=== PATIENT | male | born 1950 | race Caucasian/White ===

== ENCOUNTER → 2017-01-30 | Outpatient (CLI) | payer OTHER, BC ==
[~2017-01-30] MED LIST: AMITRIPTYLINE H25 M2 PO; BOOST237 M1 PO; CEFAZOLIN1 GM/50 M1 IV; CLOTRIMAZOLE-BE15 GM TP; COLACE100 MG PO; COUMADIN 2 MG TA2 M1 PO; COUMADIN 4 MG TA4 M1 PO; DETROL LA4 MG PO; ELIQUIS2.5 MG PO; GENTAMICIN 0.1%15 G2 TOP; LIORESAL 10 MG10 MG PO; MICONAZOLE5 GM MC; MIRALAX17 GM PO; OXYBUTYNIN 5 MG5 M2 PO; PROBIOTIC1 EAC1 PO; PROCEL1 EACH PO; UNICOMPLEX M TA1 TA1 PO; VALIUM5 MG PO
== END ==
LOC: HYPER 07:20
DX: L89.513 Pressure ulcer of right ankle, stage 3 (principal); L89.523 Pressure ulcer of left ankle, stage 3; L89.613 Pressure ulcer of right heel, stage 3; G82.20 Paraplegia, unspecified; Z87.891 Personal history of nicotine dependence; Z72.89 Other problems related to lifestyle

== ENCOUNTER → 2017-02-13 | Outpatient (CLI) | payer OTHER, BC | LOC: HYPER 07:04 | DX: L89.513 Pressure ulcer of right ankle, stage 3 (principal); L89.613 Pressure ulcer of right heel, stage 3; L89.523 Pressure ulcer of left ankle, stage 3; G82.20 Paraplegia, unspecified; Z87.891 Personal history of nicotine dependence; Z72.89 Other problems related to lifestyle ==

== ENCOUNTER → 2017-02-20 | Outpatient (CLI) | payer OTHER, BC | LOC: ULTRA 12:52 | DX: L89.513 Pressure ulcer of right ankle, stage 3 (principal); L89.613 Pressure ulcer of right heel, stage 3; I74.3 Embolism and thrombosis of arteries of the lower extremities ==

== ENCOUNTER → 2017-03-06 | Outpatient (CLI) | payer OTHER, BC | LOC: HYPER 06:55 | DX: L89.513 Pressure ulcer of right ankle, stage 3 (principal); L89.523 Pressure ulcer of left ankle, stage 3; L89.613 Pressure ulcer of right heel, stage 3; L89.893 Pressure ulcer of other site, stage 3; L89.309 Pressure ulcer of unspecified buttock, unspecified stage; G82.20 Paraplegia, unspecified; Z87.891 Personal history of nicotine dependence; Z72.89 Other problems related to lifestyle ==

== ENCOUNTER 2017-03-15 05:54 | Inpatient (IN) | payer OTHER, BC ==
[~2017-03-15] VITALS: Ht 170.2 cm; Wt 79.4 kg
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
--- NOTE | ~2017-03-15 | O ---
[facility] [place] [address] OPERATIVE REPORT Name: KATELYNCLEVE C Room #: 546-P [facility] IN ..#: [id number] Admission: 03/15/17 Attend Phys: Sriram Vivas MD Discharge: 03/18/17 Date of : 54 Report #: [id number] THIS REPORT FOR: //name// CC: Sriram Vivas Kenneth Stanford DATE OF SERVICE: 03/15/2017 PREOPERATIVE DIAGNOSIS: Right distal tibial osteomyelitis. POSTOPERATIVE DIAGNOSIS: Right distal tibial osteomyelitis. PROCEDURE: Right ankle irrigation and debridement with resection of medial malleolus. SURGEON: Sriram Vivas MD ANESTHESIA: General. ESTIMATED BLOOD LOSS: Minimal. DRAINS: One roc drain was placed. TOURNIQUET TIME: 30 minutes. COMPLICATIONS: There were no complications. DESCRIPTION OF PROCEDURE: The patient brought to the operating room where he was placed under general anesthesia. Once under adequate general anesthesia, his right lower extremity was prepped and draped in sterile manner. Extremity was elevated and tourniquet placed to 300 mmHg. An elliptical incision was made over the wound, which was a 2-cm right wound over the medial malleolus. This was dissected sharply down to the bone. Any exposed tendon was removed, the posterior tibialis and the flexor digitorum, these were excised sharply with a 15 blade. The bone was exposed and osteotome were used to remove the medial malleolus as well as anterior portion of the distal tibia to allow wound closure or approximation. The wound was then able to be approximated with a roc drain placed beneath utilizing 2-0 nylon suture after abundant irrigation with normal saline solution. The wound was then dressed with Xeroform, 4 x 4's, and sterile soft compressive dressing was placed. Tourniquet was let down approximately 30 minutes. There were no complications from the procedure. The [address] [address] OPERATIVE REPORT Name: CLEVE ZEPEDA Room #: 546-P [facility] IN ..#: [id number] Admission: 03/15/17 Attend Phys: Sriram Vivas MD Discharge: 03/18/17 Date of : 54 Report #: [id number] patient tolerated the procedure well and went to the recovery room without incident. <ELECTRONICALLY SIGNED> By: Sriram Vivas MD 03/20/17 1419 0917 0942 Sriram Vivas MD /nt
--- NOTE | ~2017-03-15 | S ---
[facility] [place] [address] SURGICAL PATH RPT PROCEDURE Name: CLEVE ZEPEDA Room #: 546-P ADM IN M.R.#: [id number] Admission: 03/15/17 Date of : 54 Discharge: Report #: [id number] Path Case #: [id number] PATHOLOGY REPORT COLLECTION DATE: 03/15/2017 RECEIVED DATE: 03/15/2017 SUBMITTING PHYS: Dr. Sriram Vivas OTHER PHYS: Dr. Kenneth Stanford SPECIMEN(S) RECEIVED: A.Right tibia * * * * * * * * * * * * FINAL DIAGNOSIS: Bone, right tibia, excision: - Marked acute inflammation extending into underlying bone associated with osteonecrosis, consistent with the provided history of osteomyelitis. (IUV:db; 03/17/2017) PATHOLOGIST: Cheryl Duckworth M.D. REPORT ELECTRONICALLY SIGNED BY: Cheryl Duckworth M.D. DATE/TIME: 03/17/2017 14:32 * * * * * * * * * * * * GROSS PATHOLOGY: The specimen is received in formalin labeled "Cleve Zepeda, right tibia". Received is a segment of light méndez bone with attached overlying white-méndez fibrous soft tissue measuring 4.2 x 2.5 x 1.4 cm in greatest dimensions. The articulating surface is not grossly visible. Specimen is submitted representatively in cassette A1, following decalcification. (CAA; 03/16/2017) CLINICAL HISTORY: Right ankle osteomyelitis INITIAL CPT CODE(S): A; 88987, 77726 Professional services performed by [facility] at [facility] [address] [place] [address] [place] [address] Technical services performed by [facility] at [address] [place] [id number]. [facility] [address] [place] [address] SURGICAL PATH RPT PROCEDURE Name: CLEVE ZEPEDA Room #: 546-P ADM IN M.R.#: [id number] Admission: 03/15/17 Date of : 54 Discharge: Report #: [id number] Path Case #: [id number] [facility] [id number] [address] PHONE: [phone] DIRECTOR: Nakul Glasgow M.D. * * * END OF REPORT * * *
[2017-03-15 12:44] VITALS: BP 130/80
[2017-03-15 15:45] VITALS: BP 130/65
[2017-03-15 16:15] VITALS: BP 151/86
[2017-03-15 16:45] VITALS: BP 168/60
[2017-03-15 17:45] VITALS: BP 131/55
[2017-03-15 17:50] LABS: HEMATOCRIT 35.4 % (42.0-52.0); HEMOGLOBIN 11.5 gm/dL (14.0-18.0); MCH 25.4 pg (26.0-34.0); MCHC 32.4 g/dL (28.0-37.0); MCV 78.6 fL (80.0-100.0); PLATELET COUNT 262 thou/uL (150-400); RBC 4.51 mil/uL (4.50-6.00); RDW 16.8 % (10.5-14.5); WBC 9.2 thou/uL (4.0-11.0)
[2017-03-15 17:58] LABS: MANUAL DIFF YES
[2017-03-15 18:09] LABS: CHOLESTEROL 149 mg/dL (<200); HDL CHOLESTEROL 45 mg/dL (>40); LDL CHOLESTEROL 97 mg/dL (<100); TC:HDL 3.3 Ratio (Not establshd); TRIGLYCERIDE 39 mg/dL (<150); VLDL 8 mg/dL (<40)
[2017-03-15 18:37] LABS: ABSOLUTE NEUTROPHILS 8.4 thou/uL (1.4-8.2); TOTAL CELL COUNT 100
[2017-03-15 18:38] LABS: ANISOCYTOSIS 1+; BURR CELLS 2+; MICROCYTES 1+; POLYCHROMASIA SLIGHT
[2017-03-15 19:51] VITALS: BP 133/59
[2017-03-16 02:06] LABS: GLYCOHEMOGLOBIN (HGB A1C) 5.4 % (4.8-5.6)
[2017-03-16 05:14] VITALS: BP 158/69
[2017-03-16 05:15] VITALS: BP 158/69
[2017-03-16 06:32] LABS: ABSOLUTE NEUTROPHILS 9.8 thou/uL (1.4-8.2); BASOPHILS 0.1 % (0.0-2.0); HEMOGLOBIN 10.9 gm/dL (14.0-18.0)
[2017-03-16 06:36] LABS: HEMATOCRIT 33.7 % (42.0-52.0); LYMPHOCYTES 12.3 % (24.0-44.0); MCH 25.1 pg (26.0-34.0); MCHC 32.3 g/dL (28.0-37.0); MCV 77.7 fL (80.0-100.0); MONOCYTES 5.5 % (1.0-8.0); PLATELET COUNT 302 thou/uL (150-400); POLYS 82.1 % (36.0-66.0); RBC 4.34 mil/uL (4.50-6.00); RDW 17.2 % (10.5-14.5)
[2017-03-16 06:44] LABS: MANUAL DIFF NO
[2017-03-16 07:13] LABS: ALBUMIN 2.9 g/dL (3.4-5.0); CALCIUM 8.9 mg/dL (8.5-10.1); CREATININE 0.6 mg/dL (0.7-1.3); MAGNESIUM 1.9 mg/dL (1.8-2.4); POTASSIUM 4.1 mmol/L (3.5-5.1); TOTAL BILIRUBIN 0.2 mg/dL (<0.1-1.0); TOTAL PROTEIN 7.1 g/dL (6.4-8.2)
[2017-03-16 07:58] VITALS: BP 128/62
[2017-03-16 15:22] VITALS: BP 130/60
[2017-03-16 19:20] VITALS: BP 146/51
[2017-03-17 03:52] VITALS: BP 127/63
[2017-03-17] MEDS ORDERED: HYDROCODONE-APA1 TA1 PO (07:47)
[2017-03-17 10:04] VITALS: BP 124/60
[2017-03-17 16:58] VITALS: BP 141/57
[2017-03-17 19:59] VITALS: BP 120/61
[2017-03-18 04:00] VITALS: BP 137/69
[2017-03-18 08:00] VITALS: BP 105/56
[2017-03-18] MEDS ORDERED: ANCEF 1GM1 GM/50 M1 IVPB (09:53)
== END 2017-03-18 16:50 | DRG 492 ==
LOC: TBA 05:54 → 5S 05:54 → PRE 11:10 → 5S 15:20
PROVIDERS: Nurse Practitioner; Orthopaedic Surgery Foot and Ankle Surgery
PROC: 0QBG0ZZ Excision of Right Tibia, Open Approach (ICD-10-PCS; principal; 2017-03-15)
PROC: 02HV33Z Insertion of Infusion Device into Superior Vena Cava, Percutaneous Approach (ICD-10-PCS; 2017-03-18)
DX: M86.161 Other acute osteomyelitis, right tibia and fibula (principal); G82.50 Quadriplegia, unspecified; M86.171 Other acute osteomyelitis, right ankle and foot; E44.0 Moderate protein-calorie malnutrition; I73.9 Peripheral vascular disease, unspecified; G83.9 Paralytic syndrome, unspecified; R53.81 Other malaise; K59.00 Constipation, unspecified; N31.9 Neuromuscular dysfunction of bladder, unspecified; Z88.2 Allergy status to sulfonamides; Z88.8 Allergy status to other drugs, medicaments and biological substances; Z87.891 Personal history of nicotine dependence; Z68.24 Body mass index [BMI] 24.0-24.9, adult; Z86.718 Personal history of other venous thrombosis and embolism; Z88.1 Allergy status to other antibiotic agents
CPT/HCPCS: 10785; 27000; 50010; 50101; 50386; 56525; 57086; 57091; 62110; 62900; 70005

== ENCOUNTER → 2017-05-01 | Outpatient (CLI) | payer OTHER, BC ==
[~2017-05-01] MED LIST changes: +ANCEF 1GM1 GM/50 M1 IVPB; +CATHFLO ACT2 MG/VIA1 IV PUSH; +ENSURE ENLIVE237 ML PO; +FLEET ENEMA118 ML RC; +FLEXERIL PO; +FLUSH FLUSH; +HYDROCODONE-APA1 TA1 PO; +PEPCID20 MG PO; +TYLENOL325 MG PO; +VANCO1GM IVPB; +XOLEGEL45 GM TP; +[UNRECOGNIZED DRUG - OTHER] PO
== END ==
LOC: HYPER 04-27 06:52
DX: T81.89XD Other complications of procedures, not elsewhere classified, subsequent encounter (principal); L89.513 Pressure ulcer of right ankle, stage 3; L89.613 Pressure ulcer of right heel, stage 3; L89.523 Pressure ulcer of left ankle, stage 3; G82.20 Paraplegia, unspecified; L30.9 Dermatitis, unspecified; Z87.891 Personal history of nicotine dependence; Z72.89 Other problems related to lifestyle; Y83.8 Other surgical procedures as the cause of abnormal reaction of the patient, or of later complication, without mention of misadventure at the time of the procedure

== ENCOUNTER → 2017-05-22 | Outpatient (CLI) | payer OTHER, BC | LOC: HYPER 06:58 | DX: T81.89XD Other complications of procedures, not elsewhere classified, subsequent encounter (principal); L97.221 Non-pressure chronic ulcer of left calf limited to breakdown of skin; L89.513 Pressure ulcer of right ankle, stage 3; L89.613 Pressure ulcer of right heel, stage 3; L89.523 Pressure ulcer of left ankle, stage 3; G82.20 Paraplegia, unspecified; L30.9 Dermatitis, unspecified; L89.893 Pressure ulcer of other site, stage 3; Z87.891 Personal history of nicotine dependence; Z72.89 Other problems related to lifestyle; Y83.8 Other surgical procedures as the cause of abnormal reaction of the patient, or of later complication, without mention of misadventure at the time of the procedure ==

== ENCOUNTER 2017-07-10 15:43 | Inpatient (IN) | payer OTHER, BC ==
[~2017-07-10] VITALS: Ht 170.2 cm; Wt 75.3 kg
--- NOTE | ~2017-07-10 | O ---
[facility] [place] [address] OPERATIVE REPORT Name: CLEVE ZEPEDA Room #: 438-P ADM IN M.R.#: [id number] Admission: 07/10/17 Attend Phys: Cong Modi MD Discharge: Date of : 54 Report #: [id number] THIS REPORT FOR: //name// CC: Cong Tatum DATE OF SERVICE: 07/14/2017 DATE OF SURGERY: 07/14/2017. PREOPERATIVE DIAGNOSIS: Right foot osteomyelitis. POSTOPERATIVE DIAGNOSIS: Right foot osteomyelitis. PROCEDURE: Right below-knee amputation. SURGEON: Cali Allen MD. GRAIN SAMPLER: Stephanie Hines. INDICATIONS FOR ASSISTANCE: Throughout the case, extensive manipulation and retraction of the leg was needed, this was afforded to me by my anesthesiology physician assistant. ANESTHESIA: LMA. TOURNIQUET TIME: 19 minutes. ESTIMATED BLOOD LOSS: 25 mL. COMPLICATIONS: None. SPECIMENS: The right foot was sent to pathology. CONDITION UPON LEAVING THE OR: Stable. INDICATION FOR PROCEDURE: The patient is a 67-year-old gentleman who is a quadriplegic. He has had wounds on his right foot that have failed wound care treatment. He had an MRI scan showing him to have osteomyelitis of several bones in his foot. He is nonambulatory and after discussion with him as well as wound care team, the recommendation was for below-knee amputation. DESCRIPTION OF PROCEDURE: Risks, benefits, alternatives, complications were discussed in detail with the patient including but not limited to risk of anesthesia; risk of damage to nerves, arteries, blood vessels; risk for infection, bleeding; risk for continued pressure ulcers and need for higher [facility] [address] [place] [address] OPERATIVE REPORT Name: KATELYNCLEVE C Room #: 438-P [facility] IN ..#: [id number] Admission: 07/10/17 Attend Phys: Cong Modi MD Discharge: Date of : 54 Report #: [id number] level amputation. Informed consent was obtained from the patient. Right lower extremity was prepped and draped in normal sterile fashion. Timeout was performed properly identifying the patient and procedure as well as instrumentation. All in the operating room were in agreement. The tourniquet was placed on the right thigh. Right lower extremity was prepped and draped in normal sterile fashion. Timeout was performed properly identifying the patient and procedure as well as the instrumentation. All in the operating room were in agreement. Right lower extremity was elevated, tourniquet was inflated. Tourniquet time was 19 minutes. A posterior flap incision was then marked out on the skin with a skin marker. An incision was made with a 10 blade. Bovie cautery was used to dissect down to the tibia medially and laterally through the anterior compartment musculature. Tibia was cleaned off with Hansen elevator and an oscillating saw was used to make a tibial resection. The anterior portion of the bone was beveled. Dissection was continued with Bovie cautery through the muscular tissues down to the fibula and tibia was cleaned off and cut 1 cm proximal to the resection of the tibia. Bovie cautery was then used to complete the amputation and the foot was sent to pathology. The tibial artery, nerve and vein were then dissected out and artery and vein were tied off with 0 silk. The nerve was pulled tightly and resected sharply with #10 blade. Tourniquet was deflated and hemostasis was obtained with Bovie cautery. Some of the deep posterior musculature was debulked with Bovie cautery to allow for the posterior flap to fit over the tibia. The wound was thoroughly irrigated and the posterior compartment fascia was then approximated to the periosteum and anterior compartment fascia with 0 Vicryls. Skin was closed with 2-0 Vicryl and skin payam. Soft dressing of Adaptic, 4 x 4, Webril, Nick wrap were applied. The patient tolerated this procedure well and went to recovery room under the care of anesthesia postoperatively. <ELECTRONICALLY SIGNED> By: Cali Allen MD 07/15/17 1035 1210 1232 Cali Allen MD /nt
--- NOTE | ~2017-07-10 | S ---
[facility] [place] [address] SURGICAL PATH RPT PROCEDURE Name: CLEVE ZEPEDA Room #: 438-P ADM IN M.R.#: [id number] Admission: 07/10/17 Date of : 54 Discharge: Report #: [id number] Path Case #: [id number] PATHOLOGY REPORT COLLECTION DATE: 07/14/2017 RECEIVED DATE: 07/14/2017 SUBMITTING PHYS: Dr. Cali Allen OTHER PHYS: Andre Huerta Dr. SPECIMEN(S) RECEIVED: A.BKA right leg * * * * * * * * * * * * FINAL DIAGNOSIS: "BKA right leg", amputation: - Skin and subcutaneous tissue with acute and chronic inflammation, necrosis, granulation tissue and underlying fat necrosis; surgical margins without significant inflammation. - Decalcified bone with patchy acute and chronic osteomyelitis. - Vessels with calcific atherosclerosis. - Previous toe amputation. (see gross description) (CLW:pit; 07/17/2017) PATHOLOGIST: Rocio Delong M.D. REPORT ELECTRONICALLY SIGNED BY: Rocio Delong M.D. DATE/TIME: 07/17/2017 14:23 * * * * * * * * * * * * GROSS PATHOLOGY: Received in red biohazard bag labeled "Cleve Zepeda and right BKA", is a below the knee amputation 25 cm in length from proximal skin resection margin to heel 21.5 cm from heel to distal tip of second toe. Extending above the skin is a 2.0 cm in length by 3.0 x 2.5 cm tibia and 3.0 cm in length by 1.5 x 1.0 cm fibula. The proximal skin, underlying soft tissue muscle and bone resection margin grossly appear viable. The vascular resection margin is unremarkable. The first digit is previously amputated; the remaining digits show a yellow crusted nail. There are several fowler-black necrotic ulcers on the méndez white skin the largest at posterior of heel 4.2 x 3.5 cm the other two one each on the lateral (2.9 x 2.0 cm) and medial (3.2 x 2.5 cm) aspect. Sectioning of these ulcers shows a necrotic underlying soft tissue with possible extension to the bone. The vasculature shows intimal thickening. Tongue Trimmer sections submitted as follows: [id number] skin, underlying soft tissue and vascular resection margin [address] [address] SURGICAL PATH RPT PROCEDURE Name: CLEVE ZEPEDA Room #: 438-P ADM IN M.R.#: [id number] Admission: 07/10/17 Date of : 54 Discharge: Report #: [id number] Path Case #: [id number] A2bone resection margin, blue ink is tibia and the other fibula after decalcification [id number] with underlying bone after decalcification [id number] (SWS; 07/14/2017) CLINICAL HISTORY: Osteomyelitis right foot INITIAL CPT CODE(S): A; 78559, 28518 Professional services performed by [facility] at [facility] [address], [place] [address] Technical services performed by [email or web address] at [address] [place] [address], [address], [place] [address]. [facility] [address] [place] [address] PHONE: [phone] DIRECTOR: Nakul Glasgow M.D. * * * END OF REPORT * * *
--- NOTE | ~2017-07-10 | HC ---
[facility] [place] [address] CONSULTATION Name: KATELYNCLEVE Geovani Room #: 438-P ADM IN M.R.#: [id number] Admission: 07/10/17 Attend Phys: Cong Modi MD Discharge: Date of : 54 Report #: [id number] THIS REPORT FOR: //name// CC: Cong Tatum DATE OF SERVICE: 07/11/2017 REASON FOR CONSULTATION: Neuropathic pressure ulcers of the right and left foot and ankle in the setting of quadriplegia, rule out osteomyelitis. HISTORY OF PRESENT ILLNESS: The patient is a 67-year-old gentleman, very well known to me from previous wound care. The patient was admitted to the hospital yesterday by Dr. Francesco Tatum from [facility]. The patient is quadriplegic and has had problems with ulcers of his feet before. The patient had undergone a previous debridement with resection of his medial malleolus of the right foot earlier this year for osteomyelitis, treatment with antibiotics and debridement, resulted in a healed wound. The patient was seen in the clinic yesterday and noted to have new serious neuropathic ulcers of the left medial malleolus and several ulcers of the right foot. Dr. Tatum was concerned this might represent osteomyelitis, and the patient was admitted. Subsequent MRI has been done of the right foot, which does show multifocal new marrow signal alteration within the medial navicular, posterior calcaneus and lateral base of the fifth metatarsal suggesting multifocal osteomyelitis with overlying soft tissue wounds. The patient is admitted for IV antibiotics, Infectious Disease consultation and possible need for surgery. We will consult Orthopedic Surgery, Dr. Vivas's group. PAST MEDICAL HISTORY: C5 quadriparesis, chronic debility and immobility. ALLERGIES: AZITHROMYCIN, LEVAQUIN, SULFA, RIVAROXABAN. MEDICATIONS: Vancomycin, see MAR. REVIEW OF SYSTEMS: Negative, suprapubic catheter in place. PHYSICAL EXAMINATION: GENERAL: Shows a chronically ill-appearing gentleman with quadriplegia. The patient is conscious, but quiet today. HEENT: Mucous membranes are moist. LUNGS: Respirations are unlabored. ABDOMEN: Chronically distended, but soft. Suprapubic catheter is in place. EXTREMITIES: Upper extremities are contracted. Examination of the patient's lower extremities shows a 1 x 1 cm dark black dry unstageable pressure wound of the left medial malleolus. There is a chronic pressure wound measuring 6 x [address] [address] CONSULTATION Name: CLEVE ZEPEDA Geovani Room #: 438-P [facility] IN [facility]#: [id number] Admission: 07/10/17 Attend Phys: Cong Modi MD Discharge: Date of : 54 Report #: [id number] of the left lateral lower leg to the ankle part of which is open, most of which is healed. Examination of the right foot shows more serious wounds. There is an unstageable pressure wound of the calcaneus measuring approximately 3 x 3 cm, which wound is open. There is a 2 x 1.5 cm dark pressure ulcer of the left medial foot over the navicular. There is also a 2 cm x 1 cm unstageable pressure wound over the lateral base of the fifth metatarsal. By MRI, all three of these areas had osteomyelitis bone involvement. IMPRESSION: 1. Chronic C5 quadriparetic. 2. Debility and immobility. 3. Neuropathic pressure ulcers of the left medial malleolus and 3 pressure ulcers of the right foot of the calcaneus, medial navicular and right base of the fifth metatarsal, with an MRI scan showing evidence of osteomyelitis. PLAN: Local wound care with 0.25 strength Dakin's dressings for now, IV antibiotics per Dr. Gilmore. I will consult Orthopedics for need of possible surgical intervention. Wound care team will follow. Foam boot and offloading By: 1230 1413 Blu Flowers MD /nt
--- NOTE | ~2017-07-10 | HC ---
[facility] [place] [address] CONSULTATION Name: KATELYNCLEVE C Room #: 438-P [facility] IN ..#: [id number] Admission: 07/10/17 Attend Phys: Cong Modi MD Discharge: 07/19/17 Date of : 54 Report #: [id number] THIS REPORT FOR: //name// CC: Cong Tatum DATE OF SERVICE: 07/12/2017 CHIEF COMPLAINT: Right foot wound. HISTORY OF PRESENT ILLNESS: The patient is a pleasant 67-year-old gentleman with a history of chronic C5 quadriplegia. The patient was admitted to the hospital on 07/10/2017 as a direct admit for right foot wound to rule out osteomyelitis. The patient reports that he has had a wound on the medial aspect of his right ankle that has been present for several months now. He had a debridement back in February, and after this, the wound had mostly healed except for one small spot. Recently, he has had several other wounds show up on the foot. He has been seen outpatient by Dr. Francesco Tatum who had suspicion of an osteomyelitis and suggested the patient be admitted. He is being seen inpatient by Dr. Blu Flowers. The patient had an MRI performed yesterday of the right foot. The patient reports that due to his quadriplegia, he has no sensation in the right foot, reports that he has some mild sensation in the left, but has been nonweightbearing on both extremities for quite some time. PAST MEDICAL HISTORY: C5 quadriplegia, chronic immobility. ALLERGIES: AZITHROMYCIN, LEVAQUIN, SULFA, RIVAROXABAN. MEDICATIONS: Please see medical record, but include Plavix and vancomycin. PHYSICAL EXAMINATION: VITAL SIGNS: Temperature 37.0 degree Celsius, blood pressure 128/75, pulse rate 102, pulse oximetry 96%. GENERAL: The patient is awake and alert, in no acute distress. EXTREMITIES: The patient's lower extremities show atrophy bilaterally. Right foot bandages were removed. There is a pressure wound on the calcaneus measuring approximately 3 x 3 cm. There is a 2 x 1 cm pressure ulcer over the medial aspect of the navicular. There is also a 2 x 1 cm wound over the base of the fifth metatarsal. Right lower leg is warm, pulses are faint, but palpable. Toe are cool to the touch, but normal capillary refill. IMAGING: MRI of the right foot performed on 07/11/2017 shows multifocal new marrow signal alteration within the medial navicular, posterior calcaneus and lateral base of the fifth metatarsal suggesting multifocal osteomyelitis [place] [address] CONSULTATION Name: CLEVE ZEPEDA Room #: 438-P [facility].#: [id number] Admission: 07/10/17 Attend Phys: Cong Modi MD Discharge: 07/19/17 Date of : 54 Report #: [id number] tissue wound. Postoperative changes from osseous debridement of the medial malleolus and anterior and medial distal tibial mid metaphysis with residual margin, T2 hyperintensity, which may represent residual chronic osteomyelitis. IMPRESSION: 1. Right foot wound with underlying osteomyelitis. 2. Chronic C5 quadriplegia. PLAN: Discussed the patient's MRI findings with the patient that MRI is strongly suggestive of osteomyelitis. We discussed that since it is in several areas, it would be unlikely that just debriding these areas would be beneficial in curing the infection. Discussed that he will most likely be candidate for below-knee amputation. The patient reports that since he is quadriplegic, he does not ambulate and thinks that he would be able to tolerate a below-knee amputation. I will put a hold on the patient's Plavix and pending medical clearance, we will proceed with below-knee amputation in the near future. <ELECTRONICALLY SIGNED> By: BINTA Sosa 07/20/17 1252 1017 1257 BINTA Ssoa /nt
[~2017-07-10 15:43] MED LIST changes: -BISACODYL SUPP10 MG RECTAL; -PLAVIX 75 MG TA75 M1 PO
[2017-07-10 16:15] VITALS: BP 126/68
[2017-07-10] MEDS ORDERED: LIORESAL 10 MG10 MG PO (16:36)
[2017-07-10] MEDS ORDERED: PROBIOTIC1 EAC1 PO (16:39)
[2017-07-10] MEDS ORDERED: OXYBUTYNIN 5 MG5 M2 PO (16:40)
[2017-07-10] MEDS ORDERED: PLAVIX 75 MG TA75 M1 PO (16:41)
[2017-07-10] MEDS ORDERED: VALIUM5 MG PO (16:42)
[2017-07-10] MEDS ORDERED: BISACODYL SUPP10 MG RECTAL (16:44)
[2017-07-10 17:30] VITALS: BP 126/68
[2017-07-10 19:30] VITALS: BP 135/65
[2017-07-10 19:45] LABS: HEMATOCRIT 38.2 % (42.0-52.0); HEMOGLOBIN 12.1 gm/dL (14.0-18.0); MCH 24.2 pg (26.0-34.0); MCHC 31.8 g/dL (28.0-37.0); MCV 76.1 fL (80.0-100.0); RBC 5.02 mil/uL (4.50-6.00); RDW 17.9 % (10.5-14.5)
[2017-07-10 19:54] LABS: CALCIUM 9.1 mg/dL (8.5-10.1); CREATININE 0.6 mg/dL (0.7-1.3); POTASSIUM 3.8 mmol/L (3.5-5.1)
[2017-07-10 19:59] LABS: ALBUMIN 3.1 g/dL (3.4-5.0); TOTAL BILIRUBIN 0.2 mg/dL (<0.1-1.0)
[2017-07-11 03:50] VITALS: BP 141/77
[2017-07-11 07:29] VITALS: BP 141/62
[2017-07-11 08:00] VITALS: BP 141/62
[2017-07-11 15:39] VITALS: BP 169/63
[2017-07-11 19:43] VITALS: BP 134/68
[2017-07-12 03:45] VITALS: BP 142/63
[2017-07-12 06:53] LABS: URINE BILIRUBIN NEGATIVE (Negative); URINE BLOOD 3+ (Negative); URINE COLOR YELLOW; URINE GLUCOSE-RANDOM* NEGATIVE (Negative); URINE KETONES NEGATIVE (Negative); URINE PROTEIN (DIPSTICK) TRACE (Negative); URINE UROBILINOGEN 0.2 E.U./dl (0.2-1.0)
[2017-07-12 06:54] LABS: URINE LEUKOCYTES-REFLEX 2+ (Negative)
[2017-07-12 07:32] VITALS: BP 128/75
[2017-07-12 07:33] LABS: CASTS None Seen /LPF (None Seen); CRYSTALS None Seen /LPF (None Seen); SQUAMOUS 0-3 Few /LPF (0-3); URINE WBC-REFLEX >25 Many /HPF (0-5)
[2017-07-12 07:36] LABS: YEAST-REFLEX Present (None Seen)
[2017-07-12 15:51] VITALS: BP 157/61
[2017-07-12 19:30] VITALS: BP 140/50
[2017-07-13 06:01] VITALS: BP 141/55
[2017-07-13 07:20] VITALS: BP 170/71
[2017-07-13 16:00] VITALS: BP 114/55
[2017-07-13 19:54] VITALS: BP 148/70
[2017-07-14] VITALS (11 sets, daily range): BP systolic 140–173; BP diastolic 61–78
[2017-07-14 01:31] LABS: ABSOLUTE NEUTROPHILS 9.3 thou/uL (1.4-8.2); BASOPHILS 0.6 % (0.0-2.0); EOSINOPHILS 2.3 % (0.0-3.0); HEMATOCRIT 37.9 % (42.0-52.0); LYMPHOCYTES 15.2 % (24.0-44.0); MCH 24.4 pg (26.0-34.0); MCHC 31.8 g/dL (28.0-37.0); MCV 76.6 fL (80.0-100.0); MONOCYTES 5.5 % (1.0-8.0); PLATELET COUNT 222 thou/uL (150-400); POLYS 76.4 % (36.0-66.0); RBC 4.94 mil/uL (4.50-6.00); RDW 18.8 % (10.5-14.5); WBC 12.2 thou/uL (4.0-11.0)
[2017-07-14 01:34] LABS: MANUAL DIFF NO
[2017-07-14 01:40] LABS: CALCIUM 8.9 mg/dL (8.5-10.1); CREATININE 0.7 mg/dL (0.7-1.3); POTASSIUM 4.1 mmol/L (3.5-5.1)
[2017-07-15 00:36] VITALS: BP 171/74
[2017-07-15 02:32] LABS: CALCIUM 8.7 mg/dL (8.5-10.1); CREATININE 0.8 mg/dL (0.7-1.3)
[2017-07-15 02:33] LABS: ABSOLUTE NEUTROPHILS 11.4 thou/uL (1.4-8.2); BASOPHILS 0.4 % (0.0-2.0); EOSINOPHILS 0.1 % (0.0-3.0); HEMATOCRIT 35.1 % (42.0-52.0); HEMOGLOBIN 11.1 gm/dL (14.0-18.0); LYMPHOCYTES 11.9 % (24.0-44.0); MCH 24.3 pg (26.0-34.0); MCHC 31.5 g/dL (28.0-37.0); MCV 76.9 fL (80.0-100.0); MONOCYTES 5.3 % (1.0-8.0); PLATELET COUNT 228 thou/uL (150-400); POLYS 82.3 % (36.0-66.0); RBC 4.57 mil/uL (4.50-6.00); RDW 18.1 % (10.5-14.5); WBC 13.9 thou/uL (4.0-11.0)
[2017-07-15 02:34] LABS: MANUAL DIFF NO
[2017-07-15 04:45] VITALS: BP 148/67
[2017-07-15 07:45] VITALS: BP 143/59
[2017-07-15 16:45] VITALS: BP 125/58
[2017-07-15 19:24] VITALS: BP 129/63
[2017-07-16 04:32] VITALS: BP 176/74
[2017-07-16 05:53] LABS: ABSOLUTE NEUTROPHILS 7.5 thou/uL (1.4-8.2); BASOPHILS 0.2 % (0.0-2.0); EOSINOPHILS 3.9 % (0.0-3.0); HEMATOCRIT 37.1 % (42.0-52.0); HEMOGLOBIN 11.6 gm/dL (14.0-18.0); LYMPHOCYTES 16.2 % (24.0-44.0); MCH 24.1 pg (26.0-34.0); MCHC 31.3 g/dL (28.0-37.0); MONOCYTES 9.1 % (1.0-8.0); PLATELET COUNT 215 thou/uL (150-400); POLYS 70.6 % (36.0-66.0); RBC 4.82 mil/uL (4.50-6.00); RDW 18.7 % (10.5-14.5); WBC 10.6 thou/uL (4.0-11.0)
[2017-07-16 05:54] LABS: MANUAL DIFF NO
[2017-07-16 06:01] LABS: CREATININE 0.6 mg/dL (0.7-1.3); POTASSIUM 4.1 mmol/L (3.5-5.1)
[2017-07-16 07:35] VITALS: BP 94/50
[2017-07-16 16:58] VITALS: BP 136/59
[2017-07-16 20:16] VITALS: BP 143/68
[2017-07-17 04:48] VITALS: BP 108/62
[2017-07-17 07:47] VITALS: BP 161/69
[2017-07-17 15:37] VITALS: BP 114/62
[2017-07-17 20:00] VITALS: BP 100/54
[2017-07-18 04:00] VITALS: BP 110/60
[2017-07-18 08:00] VITALS: BP 167/81
[2017-07-18 10:45] LABS: CALCIUM 9.4 mg/dL (8.5-10.1); CREATININE 0.7 mg/dL (0.7-1.3); POTASSIUM 3.5 mmol/L (3.5-5.1)
[2017-07-18 16:00] VITALS: BP 143/63
[2017-07-18 19:45] VITALS: BP 114/61
[2017-07-19 04:42] VITALS: BP 123/60
[2017-07-19 06:12] LABS: ABSOLUTE NEUTROPHILS 6.7 thou/uL (1.4-8.2); BASOPHILS 0.6 % (0.0-2.0); EOSINOPHILS 2.8 % (0.0-3.0); HEMATOCRIT 37.4 % (42.0-52.0); HEMOGLOBIN 11.9 gm/dL (14.0-18.0); LYMPHOCYTES 18.5 % (24.0-44.0); MCH 24.4 pg (26.0-34.0); MCHC 31.7 g/dL (28.0-37.0); MONOCYTES 6.2 % (1.0-8.0); PLATELET COUNT 224 thou/uL (150-400); POLYS 71.9 % (36.0-66.0); RBC 4.86 mil/uL (4.50-6.00); RDW 18.5 % (10.5-14.5); WBC 9.3 thou/uL (4.0-11.0)
[2017-07-19 06:34] LABS: ALBUMIN 2.9 g/dL (3.4-5.0); CALCIUM 9.4 mg/dL (8.5-10.1); CREATININE 0.6 mg/dL (0.7-1.3); MAGNESIUM 1.9 mg/dL (1.8-2.4); POTASSIUM 4.1 mmol/L (3.5-5.1); TOTAL BILIRUBIN 0.2 mg/dL (<0.1-1.0); TOTAL PROTEIN 7.3 g/dL (6.4-8.2)
[2017-07-19 06:38] LABS: MANUAL DIFF NO
[2017-07-19 06:49] VITALS: BP 123/60
[2017-07-19 09:10] VITALS: BP 124/65
[2017-07-19 11:19] VITALS: BP 124/65
== END 2017-07-19 15:00 | disposition home or self-care (01) | DRG 853 ==
LOC: 4S 15:43
PROVIDERS: Family Medicine; Hospitalist; Internal Medicine Geriatric Medicine; Nurse Practitioner; Nurse Practitioner Adult Health
PROC: 02HV33Z Insertion of Infusion Device into Superior Vena Cava, Percutaneous Approach (ICD-10-PCS; 2017-07-10)
PROC: 0Y6H0Z2 Detachment at Right Lower Leg, Mid, Open Approach (ICD-10-PCS; principal; 2017-07-14)
DX: A41.9 Sepsis, unspecified organism (principal); G82.50 Quadriplegia, unspecified; L89.614 Pressure ulcer of right heel, stage 4; L03.115 Cellulitis of right lower limb; L03.116 Cellulitis of left lower limb; M86.8X7 Other osteomyelitis, ankle and foot; E87.1 Hypo-osmolality and hyponatremia; E44.0 Moderate protein-calorie malnutrition; R53.81 Other malaise; L89.520 Pressure ulcer of left ankle, unstageable; B96.1 Klebsiella pneumoniae [K. pneumoniae] as the cause of diseases classified elsewhere; N31.9 Neuromuscular dysfunction of bladder, unspecified; N30.80 Other cystitis without hematuria; S29.9XXA Unspecified injury of thorax, initial encounter; K59.09 Other constipation; I73.9 Peripheral vascular disease, unspecified; S91.301A Unspecified open wound, right foot, initial encounter; Z88.1 Allergy status to other antibiotic agents; Z88.2 Allergy status to sulfonamides; Z88.8 Allergy status to other drugs, medicaments and biological substances; Z79.899 Other long term (current) drug therapy; Z98.62 Peripheral vascular angioplasty status; Z87.891 Personal history of nicotine dependence; Z68.26 Body mass index [BMI] 26.0-26.9, adult; Z86.718 Personal history of other venous thrombosis and embolism
CPT/HCPCS: 10102; 27000; 50101; 50386; 51412; 53000; 56524; 56525; 56528; 57091; 62110; 62900; 70005

== ENCOUNTER → 2017-07-10 | Outpatient (CLI) | payer OTHER, BC ==
[~2017-07-10] MED LIST changes: +BISACODYL SUPP10 MG RECTAL; +PLAVIX 75 MG TA75 M1 PO
== END ==
LOC: HYPER 07:07
DX: T81.89XD Other complications of procedures, not elsewhere classified, subsequent encounter (principal); L89.613 Pressure ulcer of right heel, stage 3; L89.893 Pressure ulcer of other site, stage 3; G82.20 Paraplegia, unspecified; L97.221 Non-pressure chronic ulcer of left calf limited to breakdown of skin; Z87.891 Personal history of nicotine dependence; Z72.89 Other problems related to lifestyle; Y83.8 Other surgical procedures as the cause of abnormal reaction of the patient, or of later complication, without mention of misadventure at the time of the procedure

== ENCOUNTER → 2017-08-02 | Outpatient (CLI) | payer OTHER, BC ==
[~2017-08-02] MED LIST changes: +BISACODYL SUPP10 MG RECTAL; +PLAVIX 75 MG TA75 M1 PO
== END ==
LOC: HYPER 06:49
DX: T81.89XD Other complications of procedures, not elsewhere classified, subsequent encounter (principal); L89.523 Pressure ulcer of left ankle, stage 3; L89.893 Pressure ulcer of other site, stage 3; G82.20 Paraplegia, unspecified; L30.9 Dermatitis, unspecified; Z87.891 Personal history of nicotine dependence; Z72.89 Other problems related to lifestyle; Y83.8 Other surgical procedures as the cause of abnormal reaction of the patient, or of later complication, without mention of misadventure at the time of the procedure

== ENCOUNTER → 2017-08-30 | Outpatient (CLI) | payer OTHER, BC ==
[~2017-08-30] MED LIST changes: +AMITRIPTYLINE H50 M2 PO; +ASPIRIN EC81 M1 PO; +CEFDINIR300 MG PO; +HYDROCODON-ACE1 EAC7 PO; +LINEZOLID600 MG PO; +TOLTERODINE TART4 MG PO
== END ==
LOC: HYPER 06:40
DX: L89.890 Pressure ulcer of other site, unstageable (principal); L89.523 Pressure ulcer of left ankle, stage 3; L89.891 Pressure ulcer of other site, stage 1; L89.893 Pressure ulcer of other site, stage 3; G82.20 Paraplegia, unspecified; L97.221 Non-pressure chronic ulcer of left calf limited to breakdown of skin; Z87.891 Personal history of nicotine dependence; Z72.89 Other problems related to lifestyle

== ENCOUNTER → 2017-09-06 | Outpatient (CLI) | payer OTHER, BC | LOC: HYPER 06:50 → ULTRA 10:52 → HYPER 10:54 | DX: T81.89XD Other complications of procedures, not elsewhere classified, subsequent encounter (principal); L97.221 Non-pressure chronic ulcer of left calf limited to breakdown of skin; L89.523 Pressure ulcer of left ankle, stage 3; G82.20 Paraplegia, unspecified; L30.9 Dermatitis, unspecified; Z87.891 Personal history of nicotine dependence; Z72.89 Other problems related to lifestyle; Y83.8 Other surgical procedures as the cause of abnormal reaction of the patient, or of later complication, without mention of misadventure at the time of the procedure ==

== ENCOUNTER → 2017-10-02 | Outpatient (CLI) | payer OTHER, BC | LOC: HYPER 07:03 | DX: T87.89 Other complications of amputation stump (principal); L89.523 Pressure ulcer of left ankle, stage 3; L89.893 Pressure ulcer of other site, stage 3; G82.20 Paraplegia, unspecified; L89.221 Pressure ulcer of left hip, stage 1; Z87.891 Personal history of nicotine dependence; Z72.89 Other problems related to lifestyle; Y83.5 Amputation of limb(s) as the cause of abnormal reaction of the patient, or of later complication, without mention of misadventure at the time of the procedure ==

== ENCOUNTER → 2017-10-30 | Outpatient (CLI) | payer OTHER, BC | LOC: HYPER 06:49 | DX: T87.89 Other complications of amputation stump (principal); L97.221 Non-pressure chronic ulcer of left calf limited to breakdown of skin; L89.523 Pressure ulcer of left ankle, stage 3; G82.20 Paraplegia, unspecified; L30.9 Dermatitis, unspecified; L89.891 Pressure ulcer of other site, stage 1; Z87.891 Personal history of nicotine dependence; Z72.89 Other problems related to lifestyle; Y83.5 Amputation of limb(s) as the cause of abnormal reaction of the patient, or of later complication, without mention of misadventure at the time of the procedure ==

== ENCOUNTER → 2017-12-05 | Outpatient (CLI) | payer OTHER, BC ==
[~2017-12-05] MED LIST changes: -AMITRIPTYLINE H50 M2 PO; -ASPIRIN EC81 M1 PO; -CEFDINIR300 MG PO; -HYDROCODON-ACE1 EAC7 PO; -LINEZOLID600 MG PO; -TOLTERODINE TART4 MG PO
== END ==
LOC: HYPER 11-27 06:56
DX: T87.89 Other complications of amputation stump (principal); L97.221 Non-pressure chronic ulcer of left calf limited to breakdown of skin; L89.523 Pressure ulcer of left ankle, stage 3; G82.20 Paraplegia, unspecified; L30.9 Dermatitis, unspecified; Z87.891 Personal history of nicotine dependence; Y83.5 Amputation of limb(s) as the cause of abnormal reaction of the patient, or of later complication, without mention of misadventure at the time of the procedure

== ENCOUNTER → 2018-01-03 | Outpatient (CLI) | payer OTHER, BC | LOC: HYPER 06:42 | DX: T87.89 Other complications of amputation stump (principal); L89.523 Pressure ulcer of left ankle, stage 3; L97.221 Non-pressure chronic ulcer of left calf limited to breakdown of skin; G82.20 Paraplegia, unspecified; L30.9 Dermatitis, unspecified; Z87.891 Personal history of nicotine dependence; Y83.5 Amputation of limb(s) as the cause of abnormal reaction of the patient, or of later complication, without mention of misadventure at the time of the procedure ==

== ENCOUNTER 2018-01-23 12:54 | Inpatient (IN) | payer OTHER, BC ==
[~2018-01-23] VITALS: Ht 170.2 cm; Wt 77.1 kg
--- NOTE | ~2018-01-23 | HC ---
[facility] [place] [address] CONSULTATION Name: KATELYNCLEVE Geovani Room #: 424-P [facility] IN ..#: [id number] Admission: 01/23/18 Attend Phys: Lester Garcia MD Discharge: Date of : 54 Report #: [id number] THIS REPORT FOR: //name// CC: Lester Stanford REASON FOR CONSULTATION: I was asked to evaluate concerning complicated urinary tract infection. HISTORY OF PRESENT ILLNESS: The patient was a 67-year-old, incomplete quad with neurogenic bladder and suprapubic catheter. Presents with 2-week history of low-grade fever, abdominal discomfort, mild nausea. He had his catheter changed 6 days ago. Still was not doing well and was hospitalized due to fever. Urinalysis showed pyuria and bacteriuria. Urine culture so far is showing gram negative bacteria and Staphylococcus aureus. He had a CT scan, which showed some hydronephrosis and small amount of air in the bladder. ALLERGIES: LEVAQUIN, ZITHROMAX, RIVAROXABAN, SULFA. MEDICATIONS: As noted on his MAR, now on ceftriaxone. He has not been on any chronic antibiotics. PAST MEDICAL HISTORY: Incomplete quad since 1970s, peripheral vascular disease, status post right BKA. Chronic wound to the left foot. DVT, neurogenic bladder. FAMILY HISTORY: Noncontributory. SOCIAL HISTORY: Past smoker. Minimal alcohol intake. REVIEW OF SYSTEMS: He has had intermittent cough, clear sputum. No diarrhea. No new skin lesions. PHYSICAL EXAMINATION: VITAL SIGNS: Afebrile and hemodynamically stable. GENERAL: He is alert, cooperative and pleasant, in no acute distress, incomplete quadriparesis. HEENT: Remarkable for scalp dermatitis consistent with seborrhea. CHEST: Clear. HEART: Regular. ABDOMEN: Distended. Suprapubic catheter site unremarkable. GENITOURINARY: External genitalia unremarkable. RECTAL: Not performed. EXTREMITIES: Right BKA with small eschar area to the pretibial skin and an eschar to the right lateral stump. Left foot with medial malleolus ulcer, small amount of surrounding erythema. Pressure wound to the left lateral leg without ulceration. [facility] [address] [place] [address] CONSULTATION Name: CLEVE ZEPEDA Room #: 424-P [facility] IN [facility]#: [id number] Admission: 01/23/18 Attend Phys: Lester Garcia MD Discharge: Date of : 54 Report #: [id number] LABORATORY STUDIES: Sodium 137, potassium 3, bicarbonate 23, creatinine 0.6. Hemoglobin 12.9, white count 6.4, platelet count 185,000. Differential unremarkable. Blood cultures are negative to date. Urine culture as noted above. CT scan as noted above. Urinalysis with pyuria and bacteriuria. IMPRESSION: 1. A 67-year-old with incomplete quadriparesis and neurogenic bladder. 2. Urinary tract infection complicating suprapubic catheter. 3. Bacterial maged including Staph aureus and gram-negative bacilli. 4. Allergy to MACROLIDES and SULFA. RECOMMENDATIONS: We will continue antibiotic coverage with vancomycin and ceftriaxone, pending culture results. We will determine outpatient antibiotic treatment once results are back. Continue with monthly suprapubic catheter exchange. Continue with localized wound care. Treat seborrheic dermatitis. <ELECTRONICALLY SIGNED> By: Terrell Gilmore MD 01/26/18 1213 1101 1328 Terrell Gilmore MD /nt
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
[2018-01-23 12:55] VITALS: BP 168/63
[2018-01-23] MEDS ORDERED: TOLTERODINE TART4 MG PO (13:35)
[2018-01-23 13:41] LABS: URINE BILIRUBIN NEGATIVE (Negative); URINE BLOOD 2+ (Negative); URINE CLARITY SL CLOUDY; URINE COLOR YELLOW; URINE GLUCOSE-RANDOM* NEGATIVE (Negative); URINE KETONES NEGATIVE (Negative); URINE PROTEIN (DIPSTICK) NEGATIVE (Negative); URINE SPECIFIC GRAVITY <= 1.005 (1.005-1.035); URINE UROBILINOGEN 0.2 E.U./dl (0.2-1.0)
[2018-01-23 13:43] LABS: URINE LEUKOCYTES-REFLEX 3+ (Negative); URINE NITRITE-REFLEX POSITIVE (Negative)
[2018-01-23 13:47] LABS: ABSOLUTE NEUTROPHILS 10.3 thou/uL (1.4-8.2); BASOPHILS 0.4 % (0.0-2.0); EOSINOPHILS 0.3 % (0.0-3.0); HEMATOCRIT 46.8 % (42.0-52.0); HEMOGLOBIN 15.7 gm/dL (14.0-18.0); LYMPHOCYTES 11.6 % (24.0-44.0); MCH 27.9 pg (26.0-34.0); MCHC 33.4 g/dL (28.0-37.0); MCV 83.3 fL (80.0-100.0); MONOCYTES 8.3 % (1.0-8.0); PLATELET COUNT 211 thou/uL (150-400); POLYS 79.4 % (36.0-66.0); RBC 5.62 mil/uL (4.50-6.00); RDW 16.9 % (10.5-14.5)
[2018-01-23 13:56] LABS: SQUAMOUS 0-3 Few /LPF (0-3); URINE WBC-REFLEX >25 Many /HPF (0-5)
[2018-01-23 13:57] LABS: CALCIUM 9.9 mg/dL (8.5-10.1); CREATININE 0.7 mg/dL (0.7-1.3); POTASSIUM 3.8 mmol/L (3.5-5.1)
[2018-01-23 13:57] LABS: CASTS None Seen /LPF (None Seen)
[2018-01-23 13:59] LABS: AMORPHOUS URATES Moderate /LPF (None Seen); BACTERIA-REFLEX >30 Many /HPF (None Seen); URINE RBC 3-10 Few /HPF (0-2)
[2018-01-23 14:02] LABS: ALBUMIN 3.5 g/dL (3.4-5.0); TOTAL BILIRUBIN 0.8 mg/dL (<0.1-1.0); TOTAL PROTEIN 8.2 g/dL (6.4-8.2)
[2018-01-23 16:21] VITALS: BP 160/76
[2018-01-23 16:30] VITALS: BP 156/84
[2018-01-23 17:31] VITALS: BP 129/55
[2018-01-23 18:00] VITALS: BP 129/55
[2018-01-23 20:00] VITALS: BP 152/71
[2018-01-24 04:13] VITALS: BP 149/87
[2018-01-24 04:53] LABS: ABSOLUTE NEUTROPHILS 7.4 thou/uL (1.4-8.2); BASOPHILS 0.3 % (0.0-2.0); EOSINOPHILS 0.3 % (0.0-3.0); HEMATOCRIT 47.7 % (42.0-52.0); HEMOGLOBIN 15.8 gm/dL (14.0-18.0); LYMPHOCYTES 13.3 % (24.0-44.0); MCH 27.6 pg (26.0-34.0); MCHC 33.1 g/dL (28.0-37.0); MCV 83.4 fL (80.0-100.0); PLATELET COUNT 209 thou/uL (150-400); POLYS 79.1 % (36.0-66.0); RBC 5.72 mil/uL (4.50-6.00); RDW 17.1 % (10.5-14.5); WBC 9.3 thou/uL (4.0-11.0)
[2018-01-24 04:59] LABS: CALCIUM 9.2 mg/dL (8.5-10.1); CREATININE 0.7 mg/dL (0.7-1.3); POTASSIUM 3.7 mmol/L (3.5-5.1)
[2018-01-24 08:00] VITALS: BP 110/62
[2018-01-24 15:40] VITALS: BP 149/70
[2018-01-24 20:00] VITALS: BP 141/58
[2018-01-25 05:26] VITALS: BP 143/71
[2018-01-25 08:00] VITALS: BP 106/63
[2018-01-25 09:28] LABS: ABSOLUTE NEUTROPHILS 4.4 thou/uL (1.4-8.2); BASOPHILS 0.3 % (0.0-2.0); EOSINOPHILS 2.1 % (0.0-3.0); LYMPHOCYTES 23.4 % (24.0-44.0); MCH 27.9 pg (26.0-34.0); MCHC 33.1 g/dL (28.0-37.0); MCV 84.2 fL (80.0-100.0); MONOCYTES 5.7 % (1.0-8.0); PLATELET COUNT 185 thou/uL (150-400); POLYS 68.5 % (36.0-66.0); RBC 4.63 mil/uL (4.50-6.00); RDW 16.6 % (10.5-14.5); WBC 6.4 thou/uL (4.0-11.0)
[2018-01-25 09:29] LABS: HEMOGLOBIN 12.9 gm/dL (14.0-18.0)
[2018-01-25 09:32] LABS: CALCIUM 8.6 mg/dL (8.5-10.1); CREATININE 0.6 mg/dL (0.7-1.3)
[2018-01-25 19:47] VITALS: BP 134/50
[2018-01-26 04:10] VITALS: BP 133/71
[2018-01-26 06:46] LABS: HEMATOCRIT 42.9 % (42.0-52.0); HEMOGLOBIN 14.1 gm/dL (14.0-18.0); MCH 27.8 pg (26.0-34.0); MCHC 32.9 g/dL (28.0-37.0); MCV 84.4 fL (80.0-100.0); RBC 5.08 mil/uL (4.50-6.00); RDW 16.9 % (10.5-14.5); WBC 6.6 thou/uL (4.0-11.0)
[2018-01-26 07:02] LABS: CALCIUM 8.9 mg/dL (8.5-10.1); CREATININE 0.6 mg/dL (0.7-1.3); POTASSIUM 3.3 mmol/L (3.5-5.1)
[2018-01-26 09:25] VITALS: BP 145/74
[2018-01-26 09:30] VITALS: BP 145/74
[2018-01-26 17:08] VITALS: BP 146/74
[2018-01-26 19:25] VITALS: BP 182/83
[2018-01-27 04:49] VITALS: BP 186/80
[2018-01-27 05:36] LABS: HEMATOCRIT 42.1 % (42.0-52.0); HEMOGLOBIN 13.7 gm/dL (14.0-18.0); MCH 27.3 pg (26.0-34.0); MCHC 32.5 g/dL (28.0-37.0); MCV 83.9 fL (80.0-100.0); RBC 5.01 mil/uL (4.50-6.00); RDW 16.2 % (10.5-14.5); WBC 6.1 thou/uL (4.0-11.0)
[2018-01-27 05:45] LABS: CALCIUM 8.9 mg/dL (8.5-10.1); CREATININE 0.5 mg/dL (0.7-1.3); POTASSIUM 3.5 mmol/L (3.5-5.1)
[2018-01-27 07:06] VITALS: BP 137/62
[2018-01-27 15:45] VITALS: BP 199/82
[2018-01-27 20:18] VITALS: BP 154/64
[2018-01-28 04:27] VITALS: BP 173/79
[2018-01-28 09:00] VITALS: BP 145/60
[2018-01-28 20:00] VITALS: BP 149/64
[2018-01-29 05:17] LABS: HEMATOCRIT 40.5 % (42.0-52.0); HEMOGLOBIN 13.4 gm/dL (14.0-18.0); MCH 27.6 pg (26.0-34.0); MCHC 33.1 g/dL (28.0-37.0); MCV 83.6 fL (80.0-100.0); RBC 4.84 mil/uL (4.50-6.00); RDW 16.2 % (10.5-14.5); WBC 8.7 thou/uL (4.0-11.0)
[2018-01-29 05:25] LABS: CALCIUM 8.7 mg/dL (8.5-10.1); CREATININE 0.5 mg/dL (0.7-1.3)
[2018-01-29 18:21] LABS: URINE BILIRUBIN NEGATIVE (Negative); URINE BLOOD 1+ (Negative); URINE CLARITY CLEAR; URINE COLOR YELLOW; URINE GLUCOSE-RANDOM* NEGATIVE (Negative); URINE KETONES 1+ (Negative); URINE NITRITE-REFLEX NEGATIVE (Negative); URINE PROTEIN (DIPSTICK) NEGATIVE (Negative); URINE UROBILINOGEN 0.2 E.U./dl (0.2-1.0)
[2018-01-29 18:28] LABS: URINE LEUKOCYTES-REFLEX 1+ (Negative)
[2018-01-29 18:42] LABS: BACTERIA-REFLEX >30 Many /HPF (None Seen); CASTS None Seen /LPF (None Seen); CRYSTALS None Seen /LPF (None Seen); SQUAMOUS 0-3 Few /LPF (0-3); URINE WBC-REFLEX 6-15 Few /HPF (0-5)
[2018-01-29 18:43] LABS: URINE RBC 0-2 Rare /HPF (0-2)
[2018-01-29 20:05] VITALS: BP 130/59
[2018-01-30 04:23] VITALS: BP 204/96
[2018-01-30 04:37] LABS: HEMATOCRIT 39.6 % (42.0-52.0); MCH 27.4 pg (26.0-34.0); MCHC 32.8 g/dL (28.0-37.0); MCV 83.4 fL (80.0-100.0); RBC 4.75 mil/uL (4.50-6.00); RDW 16.4 % (10.5-14.5); WBC 8.8 thou/uL (4.0-11.0)
[2018-01-30 05:01] LABS: CALCIUM 8.4 mg/dL (8.5-10.1); CREATININE 0.6 mg/dL (0.7-1.3)
[2018-01-30 05:02] LABS: POTASSIUM 2.8 mmol/L (3.5-5.1)
[2018-01-30 08:15] VITALS: BP 204/96
[2018-01-30 20:30] VITALS: BP 186/78
[2018-01-31 04:30] VITALS: BP 149/89
[2018-01-31 07:12] VITALS: BP 128/67
[2018-01-31 10:12] LABS: ABSOLUTE NEUTROPHILS 6.5 thou/uL (1.4-8.2); BASOPHILS 0.4 % (0.0-2.0); EOSINOPHILS 2.5 % (0.0-3.0); HEMATOCRIT 39.3 % (42.0-52.0); HEMOGLOBIN 13.3 gm/dL (14.0-18.0); LYMPHOCYTES 15.6 % (24.0-44.0); MCH 28.3 pg (26.0-34.0); MCHC 33.7 g/dL (28.0-37.0); MCV 83.9 fL (80.0-100.0); MONOCYTES 4.9 % (1.0-8.0); PLATELET COUNT 269 thou/uL (150-400); POLYS 76.6 % (36.0-66.0); RBC 4.69 mil/uL (4.50-6.00); RDW 16.3 % (10.5-14.5); WBC 8.5 thou/uL (4.0-11.0)
[2018-01-31 10:24] LABS: CALCIUM 9.3 mg/dL (8.5-10.1); CREATININE 0.5 mg/dL (0.7-1.3); POTASSIUM 3.2 mmol/L (3.5-5.1)
[2018-01-31 19:53] VITALS: BP 118/57
[2018-02-01 04:24] VITALS: BP 145/63
[2018-02-01 05:08] LABS: HEMATOCRIT 38.7 % (42.0-52.0); HEMOGLOBIN 12.6 gm/dL (14.0-18.0); MCH 27.3 pg (26.0-34.0); MCHC 32.6 g/dL (28.0-37.0); MCV 83.8 fL (80.0-100.0); RBC 4.62 mil/uL (4.50-6.00); RDW 16.3 % (10.5-14.5); WBC 7.8 thou/uL (4.0-11.0)
[2018-02-01 05:15] LABS: CALCIUM 8.5 mg/dL (8.5-10.1); CREATININE 0.5 mg/dL (0.7-1.3); POTASSIUM 3.4 mmol/L (3.5-5.1)
[2018-02-01] MEDS ORDERED: LINEZOLID600 MG PO (12:27)
[2018-02-01] MEDS ORDERED: CEFDINIR300 MG PO (12:27)
[2018-02-01 14:12] VITALS: BP 145/63
[2018-02-01 14:50] VITALS: BP 145/63
[2018-02-01 15:42] VITALS: BP 145/63
== END 2018-02-01 15:40 | disposition home or self-care (01) | DRG 698 ==
LOC: ER 12:54 → EROBS 15:51 → 4E 15:51
PROVIDERS: Hospitalist; Nurse Practitioner; Physician Assistant; Specialist
DX: T83.511A Infection and inflammatory reaction due to indwelling urethral catheter, initial encounter (principal); A41.9 Sepsis, unspecified organism; G82.50 Quadriplegia, unspecified; N13.30 Unspecified hydronephrosis; L97.329 Non-pressure chronic ulcer of left ankle with unspecified severity; T87.43 Infection of amputation stump, right lower extremity; K59.09 Other constipation; N13.9 Obstructive and reflux uropathy, unspecified; N31.9 Neuromuscular dysfunction of bladder, unspecified; Z66 Do not resuscitate; Y83.8 Other surgical procedures as the cause of abnormal reaction of the patient, or of later complication, without mention of misadventure at the time of the procedure; I87.2 Venous insufficiency (chronic) (peripheral); B95.62 Methicillin resistant Staphylococcus aureus infection as the cause of diseases classified elsewhere; I10 Essential (primary) hypertension; B96.1 Klebsiella pneumoniae [K. pneumoniae] as the cause of diseases classified elsewhere; I73.9 Peripheral vascular disease, unspecified; Z86.718 Personal history of other venous thrombosis and embolism; Z88.1 Allergy status to other antibiotic agents; Z88.2 Allergy status to sulfonamides; Z88.8 Allergy status to other drugs, medicaments and biological substances; Z82.49 Family history of ischemic heart disease and other diseases of the circulatory system; Z83.3 Family history of diabetes mellitus; Z87.891 Personal history of nicotine dependence; Z79.899 Other long term (current) drug therapy
CPT/HCPCS: 10084; 27000

== ENCOUNTER 2018-02-02 20:53 | Emergency (ER) | payer OTHER, BC ==
[~2018-02-02] VITALS: Ht 170.2 cm; Wt 77.1 kg
[~2018-02-02 20:53] MED LIST changes: +CEFDINIR300 MG PO; +LINEZOLID600 MG PO; +TOLTERODINE TART4 MG PO
[2018-02-02 22:09] LABS: URINE BILIRUBIN NEGATIVE (Negative); URINE BLOOD 2+ (Negative); URINE CLARITY CLEAR; URINE COLOR YELLOW; URINE GLUCOSE-RANDOM* NEGATIVE (Negative); URINE KETONES NEGATIVE (Negative); URINE LEUKOCYTES 3+ (Negative); URINE NITRITE NEGATIVE (Negative); URINE PROTEIN (DIPSTICK) NEGATIVE (Negative); URINE UROBILINOGEN 0.2 E.U./dl (0.2-1.0)
[2018-02-02 22:21] LABS: CASTS None Seen /LPF (None Seen); CRYSTALS None Seen /LPF (None Seen); SQUAMOUS 0-3 Few /LPF (0-3); URINE WBC >25 Many /HPF (0-5)
[2018-02-02 22:22] LABS: URINE RBC 3-10 Few /HPF (0-2)
[2018-02-02 23:05] LABS: ABSOLUTE NEUTROPHILS 4.8 thou/uL (1.4-8.2); BASOPHILS 0.9 % (0.0-2.0); EOSINOPHILS 2.1 % (0.0-3.0); HEMATOCRIT 41.3 % (42.0-52.0); HEMOGLOBIN 13.6 gm/dL (14.0-18.0); LYMPHOCYTES 22.6 % (24.0-44.0); MCH 27.5 pg (26.0-34.0); MCV 83.4 fL (80.0-100.0); MONOCYTES 5.8 % (1.0-8.0); PLATELET COUNT 261 thou/uL (150-400); POLYS 68.6 % (36.0-66.0); RBC 4.95 mil/uL (4.50-6.00); RDW 16.5 % (10.5-14.5)
[2018-02-02 23:11] LABS: ANION GAP 6 mmol/L (7-16); BUN 9 mg/dL (7-18); CALCIUM 9.4 mg/dL (8.5-10.1); CHLORIDE 103 mmol/L (98-107); CO2 28 mmol/L (21-32); CREATININE 0.6 mg/dL (0.7-1.3); GLUCOSE 104 mg/dL (74-106); POTASSIUM 3.3 mmol/L (3.5-5.1); SODIUM 137 mmol/L (136-145)
[2018-02-02 23:17] LABS: ALBUMIN 2.8 g/dL (3.4-5.0); DIRECT BILIRUBIN < 0.1 mg/dL (<0.1-0.3); SGOT 18 U/L (15-37); SGPT 23 U/L (30-65); TOTAL BILIRUBIN 0.2 mg/dL (<0.1-1.0); TOTAL PROTEIN 6.8 g/dL (6.4-8.2)
== END 2018-02-03 00:51 | disposition home or self-care (01) ==
LOC: ER 20:53
PROVIDERS: Emergency Medicine
DX: R10.9 Unspecified abdominal pain (principal); R82.71 Bacteriuria; Z86.718 Personal history of other venous thrombosis and embolism; Z87.891 Personal history of nicotine dependence; Z88.1 Allergy status to other antibiotic agents; Z88.2 Allergy status to sulfonamides

== ENCOUNTER → 2018-03-07 | Outpatient (CLI) | payer OTHER, BC | LOC: HYPER 06:43 | DX: T87.89 Other complications of amputation stump (principal); L89.523 Pressure ulcer of left ankle, stage 3; L89.893 Pressure ulcer of other site, stage 3; G82.20 Paraplegia, unspecified; L30.9 Dermatitis, unspecified; Z87.891 Personal history of nicotine dependence; Y83.5 Amputation of limb(s) as the cause of abnormal reaction of the patient, or of later complication, without mention of misadventure at the time of the procedure ==

== ENCOUNTER → 2018-03-21 | Outpatient (CLI) | payer OTHER, BC | LOC: HYPER 01-24 13:39 | DX: T87.89 Other complications of amputation stump (principal); L89.893 Pressure ulcer of other site, stage 3; G82.20 Paraplegia, unspecified; L30.9 Dermatitis, unspecified; Z89.511 Acquired absence of right leg below knee; Z87.891 Personal history of nicotine dependence; Y83.5 Amputation of limb(s) as the cause of abnormal reaction of the patient, or of later complication, without mention of misadventure at the time of the procedure ==

== ENCOUNTER → 2018-06-13 | Outpatient (CLI) | payer OTHER, BC ==
[~2018-06-13] MED LIST changes: +AMITRIPTYLINE H50 M2 PO; +ASPIRIN EC81 M1 PO; +HYDROCODON-ACE1 EAC7 PO
== END ==
LOC: HYPER 06:38
DX: T81.31XD Disruption of external operation (surgical) wound, not elsewhere classified, subsequent encounter (principal); L89.523 Pressure ulcer of left ankle, stage 3; L97.221 Non-pressure chronic ulcer of left calf limited to breakdown of skin; G82.20 Paraplegia, unspecified; Z89.611 Acquired absence of right leg above knee; Z87.891 Personal history of nicotine dependence; Y83.8 Other surgical procedures as the cause of abnormal reaction of the patient, or of later complication, without mention of misadventure at the time of the procedure

== ENCOUNTER 2018-06-30 08:29 | Observation (INO) | payer OTHER, BC ==
[~2018-06-30] VITALS: Ht 170.2 cm; Wt 77.1 kg
--- NOTE | ~2018-06-30 | EKG ---
[facility] [place] [address] ELECTROCARDIOGRAM REPORT Name: KATELYNCLEVE C [id number] Admission: 06/30/18 Attend Phys: Discharge: Date of : 54 Report #: [id number] THIS REPORT FOR: //name// [facility] ED Test Date: 2018-06-30 Test Time: 09:45:35 Pat Name: CLEVE ZEPEDA Department: Room: Gender: Rug Measurer: : 1950 Requested By: Terrell Hdz Order Number: [id number] MD: Andrez Randolph Measurements Intervals Mcdaniels Rate: 78 P: 59 KS: 188 QRS: 19 QRSD: 95 T: 35 QT: 374 QTc: 426 Interpretive Statements Sinus rhythm RSR' in V1 or V2, probably normal variant No previous ECG available for comparison Electronically Signed On 06-30-2018 10:48:24 FOOT SETTER by Andrez Randolph [email or web address] <ELECTRONICALLY SIGNED> By: Andrez Randolph MD, [facility] 06/30/18 1048 0945 0945 Andrez Randolph MD, FACC /EPI
--- NOTE | ~2018-06-30 | HC ---
[facility] [place] [address] CONSULTATION Name: CLEVE ZEPEDA [id number] Admission: 06/30/18 Attend Phys: Cong Modi MD Discharge: Date of : 54 Report #: [id number] THIS REPORT FOR: //name// CC: Cong Stanford DATE OF SERVICE: 06/30/2018 CONSULTATION: Infectious diseases. HISTORY OF PRESENT ILLNESS: Cosmo Zepeda is a 68-year-old gentleman, admitted with urinary tract infection. The patient has longstanding T5 partial paraplegia with some upper extremity involvement as well. He has a history of suprapubic catheter for long-term urinary management. He has recurrent urinary tract infections. The patient has noted over the last week, he has been having more bladder spasm. The urine has appeared darker. He does have a more leakage of urine around the catheter and from his penis. Over the last few days, he has just been having more general malaise and feeling wiped out. He has not had fevers, chills nor sweats. With his paraplegia and the catheter, he really has no pain or dysuria. He denies flank pain. The patient comes to the emergency room, was found to have leukocytosis and pyuria. In this setting, infectious disease consultation was requested. PAST MEDICAL HISTORY: Significant for T5 paraplegia with some neck involvement as well. The patient has peripheral artery disease. He had non-healable wounds in the right leg, which ultimately ended up with a below-knee amputation, which did not heal, and then was revised to an above-knee amputation. He has had wounds on his left heel, but these are actually doing well under the care of Dr. Valencia. ALLERGIES: The patient has an allergy to SULFA, LEVAQUIN, and AZITHROMYCIN. FAMILY HISTORY: Noncontributory. SOCIAL HISTORY: The patient is . He did smoke in the past, but quit many years ago. He is retired. REVIEW OF SYSTEMS: The patient says, "I just feel wiped out." Denies any fevers, chills or sweats. No headache, sinus congestion, sore throat, trouble swallowing. The patient denies cough, chest pain, shortness of breath. Denies angina, syncope, palpitation. The patient denies nausea, vomiting, diarrhea, constipation. He is on a regular bowel program with MiraLax and suppositories and this was working well. He has urinary symptoms as noted. No pain in his extremities. MEDICATION RECONCILIATION: The patient's current medication regimen includes [address] [address] CONSULTATION Name: KATELYNCLEVE Geovani [facility] [id number] Admission: 06/30/18 Attend Phys: Cong Modi MD Discharge: Date of : 54 Report #: [id number] polyethylene glycol daily, enteric-coated aspirin 81 mg daily, clopidogrel 75 mg daily, currently on Zosyn 3.375 grams every 8 hours, oxybutynin 5 mg b.i.d., diazepam 10 mg t.i.d. scheduled, baclofen 20 mg t.i.d., hydrocodone 2 tablets q. 8 p.r.n., fentanyl p.r.n., Tylenol p.r.n., Zofran p.r.n. PHYSICAL EXAMINATION: GENERAL: The patient appears his stated age, alert, oriented, not in any distress. VITAL SIGNS: Normal. The patient is afebrile. SKIN: Shows no rash, lesion or exanthem. The left foot was in a cup multilayer dressing and an offloading boot, was not directly examined. The patient tells me the wound is healed. The patient has somewhat scott skin complexion. ENT: Negative. NECK: Supple. CARDIOVASCULAR: Heart sounds are normal. LUNGS: Clear. ABDOMEN: Belly is protuberant, soft, not tender. Suprapubic catheter appears unremarkable. There is some discharge from the penis. EXTREMITIES: Show the right above-knee amputation, which still had an Nick bandage on it. The fingers and hands show some contractures from spinal damage. He has the right above-knee amputation. LABORATORY DATA: White count is 15,000, hemoglobin 15.9, platelets 255,000. Electrolytes, BUN and creatinine, glucose are normal. Liver function tests are normal. Lactate is normal. Urinalysis shows greater than 25 white cells, many red cells, and bacteria. IMAGING DATA: The CT scan of the abdomen showed right hydronephrosis, as well as hydroureter. The kidneys both had some straining, suggested inflammation. The bladder wall was thickened. The radiologist's interpretation is urinary tract infection. Cultures in January, when the patient was in the hospital, for his legs, showed Klebsiella in the urine and one culture had MRSA in the urine as well. IMPRESSION: Urinary tract infection with possible element of obstruction and pyelonephritis in a paraplegic. The patient is started on Zosyn. This would be appropriate broad-spectrum coverage. We will await results of urine cultures, which would become available in the next day or so. Continue supportive therapy. Wound care has been consulted to address skin issues. Hopefully, we will be able to stabilize the patient quickly and find an oral antibiotic, which will work for his infection. He is allergic to LEVAQUIN, [facility] [address] [place] [address] CONSULTATION Name: CLEVE ZEPEDA Room #: 428-P [facility] [id number] Admission: 06/30/18 Attend Phys: Cong Modi MD Discharge: Date of : 54 Report #: [id number] which may be a problem. For now, we will continue supportive therapy for sepsis and antibiotics. <ELECTRONICALLY SIGNED> By: Danie Tripathi MD 07/01/182020 04 7 Danie Tripathi MD /nt
[2018-06-30 08:30] VITALS: BP 132/62
[2018-06-30 10:09] LABS: BASOPHILS 0.6 % (0.0-2.0); HEMATOCRIT 49.5 % (42.0-52.0); HEMOGLOBIN 15.9 gm/dL (14.0-18.0); MCH 26.3 pg (26.0-34.0); MCHC 32.2 g/dL (28.0-37.0); MCV 81.8 fL (80.0-100.0); MONOCYTES 5.6 % (1.0-8.0); PLATELET COUNT 255 thou/uL (150-400); POLYS 79.8 % (36.0-66.0); RBC 6.06 mil/uL (4.50-6.00); RDW 16.5 % (10.5-14.5)
[2018-06-30 10:25] LABS: ALBUMIN 3.2 g/dL (3.4-5.0); BUN 12 mg/dL (7-18); CALCIUM 10.1 mg/dL (8.5-10.1); CHLORIDE 101 mmol/L (98-107); CREATININE 0.7 mg/dL (0.7-1.3); GLUCOSE 107 mg/dL (74-106); LIPASE 66 U/L (73-393); POTASSIUM 4.4 mmol/L (3.5-5.1); SGOT 11 U/L (15-37); SGPT 19 U/L (30-65); SODIUM 135 mmol/L (136-145); TOTAL BILIRUBIN 0.3 mg/dL (<0.1-1.0); TOTAL PROTEIN 8.1 g/dL (6.4-8.2); TROPONIN-I <0.06 ng/mL (<0.06)
[2018-06-30 10:31] LABS: ANION GAP 9 mmol/L (7-16); CO2 25 mmol/L (21-32)
[2018-06-30 12:12] LABS: URINE BILIRUBIN NEGATIVE (Negative); URINE BLOOD 3+ (Negative); URINE GLUCOSE-RANDOM* NEGATIVE (Negative); URINE KETONES NEGATIVE (Negative); URINE LEUKOCYTES-REFLEX 2+ (Negative); URINE NITRITE-REFLEX POSITIVE (Negative); URINE PROTEIN (DIPSTICK) 2+ (Negative); URINE UROBILINOGEN 0.2 E.U./dl (0.2-1.0)
[2018-06-30 12:14] LABS: URINE CLARITY CLOUDY; URINE COLOR RED
[2018-06-30 12:20] LABS: CASTS None Seen /LPF (None Seen); SQUAMOUS 0-3 Few /LPF (0-3); URINE RBC >20 Many /HPF (0-2); URINE WBC-REFLEX >25 Many /HPF (0-5)
[2018-06-30 12:21] LABS: BACTERIA-REFLEX >30 Many /HPF (None Seen); CRYSTALS None Seen /LPF (None Seen); WBC CLUMPS Moderate (None Seen)
[2018-06-30 12:57] VITALS: BP 155/67
[2018-06-30 13:30] VITALS: BP 103/67
[2018-06-30 14:11] VITALS: BP 198/54
[2018-06-30 20:00] VITALS: BP 80/46
[2018-07-01 03:30] VITALS: BP 105/48
[2018-07-01 05:43] LABS: HEMATOCRIT 41.8 % (42.0-52.0); MCH 27.1 pg (26.0-34.0); MCHC 32.9 g/dL (28.0-37.0); MCV 82.3 fL (80.0-100.0); RBC 5.08 mil/uL (4.50-6.00); RDW 15.9 % (10.5-14.5); WBC 12.5 thou/uL (4.0-11.0)
[2018-07-01 05:46] LABS: HEMOGLOBIN 13.7 gm/dL (14.0-18.0)
[2018-07-01 05:55] LABS: CALCIUM 8.5 mg/dL (8.5-10.1); CREATININE 0.6 mg/dL (0.7-1.3)
[2018-07-01 07:23] VITALS: BP 119/48
[2018-07-01 16:11] VITALS: BP 144/50
[2018-07-01 20:43] VITALS: BP 122/50
== END 2018-07-01 22:40 | disposition short-term general hospital (02) ==
LOC: ER 08:29 → EROBS 12:36 → 4E 12:36
PROVIDERS: Emergency Medicine; Hospitalist
DX: N30.90 Cystitis, unspecified without hematuria (principal); N12 Tubulo-interstitial nephritis, not specified as acute or chronic; I73.9 Peripheral vascular disease, unspecified; G82.20 Paraplegia, unspecified; M86.8X7 Other osteomyelitis, ankle and foot; K59.00 Constipation, unspecified; L89.613 Pressure ulcer of right heel, stage 3; L89.623 Pressure ulcer of left heel, stage 3; D72.829 Elevated white blood cell count, unspecified; G82.54 Quadriplegia, C5-C7 incomplete; Z79.82 Long term (current) use of aspirin; Z96.0 Presence of urogenital implants; Z79.899 Other long term (current) drug therapy; Z87.891 Personal history of nicotine dependence; Z89.611 Acquired absence of right leg above knee; Z89.512 Acquired absence of left leg below knee; Z86.718 Personal history of other venous thrombosis and embolism
CPT/HCPCS: 50455

== ENCOUNTER → 2019-06-12 | Outpatient (CLI) | payer OTHER, BC | LOC: HYPER 06:15 | DX: L97.221 Non-pressure chronic ulcer of left calf limited to breakdown of skin (principal); L89.893 Pressure ulcer of other site, stage 3; L89.620 Pressure ulcer of left heel, unstageable; L97.522 Non-pressure chronic ulcer of other part of left foot with fat layer exposed; G82.20 Paraplegia, unspecified; L30.9 Dermatitis, unspecified; Z87.891 Personal history of nicotine dependence; Z89.611 Acquired absence of right leg above knee ==

== ENCOUNTER → 2019-11-28 | Outpatient (CLI) | payer OTHER, BC | LOC: HYPER 10:31 | DX: I70.248 Atherosclerosis of native arteries of left leg with ulceration of other part of lower leg (principal); L97.821 Non-pressure chronic ulcer of other part of left lower leg limited to breakdown of skin; L89.151 Pressure ulcer of sacral region, stage 1; S81.012D Laceration without foreign body, left knee, subsequent encounter; G82.20 Paraplegia, unspecified; Z89.512 Acquired absence of left leg below knee; Z89.511 Acquired absence of right leg below knee; Z87.891 Personal history of nicotine dependence; X58.XXXD Exposure to other specified factors, subsequent encounter ==